=== PATIENT | female | born 1980 | race Caucasian/White ===

== ENCOUNTER 2019-12-16 17:12 | Emergency (ER) | payer OTHER, SELFPAY ==
--- NOTE | ~2019-12-16 | XR_ITS ---
XR finger 3rd LT min 2V 12/16/2019 17:47 INDICATION: Left third finger pain after trauma PROCEDURE: 4 views left third finger COMPARISON: No prior studies for comparison. FINDINGS: Fracture, dislocation or subluxation is not identified. The soft tissues appear within norm al limits. No foreign bodies are identified. IMPRESSION: 1: NO ACUTE BONE OR JOINT ABNORMALITY IDENTIFIED. Reviewed, dictated and finalized at location A.
--- NOTE | 2019-12-16 17:29 | ED.UPPEXIN ---
HPI - Extremity Injury (Upper) General Chief Complaint: Extremity Injury, Upper Stated Complaint: middle finger/r hand Time Seen by Provider: 12/16/19 17:30 Source: patient and RN notes reviewed Mode of arrival: ambulatory Limitations: no limitations History of Present Illness HPI narrative: 39 year old female who presents to [facility] care with complaints of slamming middle finger left hand yesterday in door while carrying in groceries, Patient has some swelling around nail bed and some bruising under nail at proximal bed. Patient states that finger distally is aching rates her pain 5/10. Patient has strong left radial pulse, patient denies any tingling or numbness to her finger or hand. MD complaint: injury to: left and finger (middle) Onset (ago): day(s) (1) Other Extremity Injury: Left: fingers (middle finger) Other injuries: none Handedness: right Place: home Severity: moderate Severity scale (1-10): 5 Exacerbating factors: movement of extremity Context: direct blow Associated symptoms: denies other symptoms Treatments prior to arrival: cold therapy and NSAIDS Related Data Allergies Allergy/AdvReac Type Severity Reaction Status Date / Time cat dander Allergy Unknown allergic Verified 11/08/18 09:48 grass pollen Allergy Unknown allergic Verified 11/08/18 09:48 mold Allergy Unknown allergic Verified 11/08/18 09:48 pollen extracts Allergy Unknown allergic Verified 11/08/18 09:48 Review of Systems Review of Systems: Narrative: CONSTITUTIONAL: Denies fever, chills, or sweats. EYES: Denies visual changes, redness, or discharge. ENT: Denies rhinorrhea, congestion, sore throat, or otalgia. CARDIOVASCULAR: Denies chest pain, palpitations, or edema. RESPIRATORY: Denies cough or dyspnea. GASTROINTESTINAL: Denies abdominal pain, nausea, vomiting, or diarrhea. GENITOURINARY: Denies dysuria or hematuria. SKIN: Denies rash or itching. MUSCULOSKELETAL: Denies back pain, positive for left middle finger distal joint pain and around nail bed, or myalgia. NEUROLOGIC: Denies headache, numbness, or weakness. PSYCHIATRIC: Denies anxiety or depression. All systems reviewed & are unremarkable except as noted in HPI and below PMFSH Past Medical History Medical History (Updated 12/17/19 @ 19:47 by Linda Kauffman NP) Seasonal allergies Surgical History Surgical History (Updated 12/17/19 @ 19:47 by Linda Kauffman NP) Previous section Social History Social History (Updated 12/17/19 @ 19:47 by Linda Kauffman NP) Smoking status: Never smoker Alcohol intake: current Living arrangements: with family Gender identity (if verbalized by the patient): Female Comments At time of signature, agree with nursing past medical, surgical, social history. There is no relevant family history pertinent to the presenting complaint Exam Narrative: Exam Narrative: GENERAL: Well-appearing, well-nourished, and in no acute distress. HEAD: Normocephalic, atraumatic. EYES: PERRLA and EOMI. ENT: Nares clear, no rhinorrhea or epistaxis. Mucous membranes moist. NECK: Supple. CHEST: Clear to auscultation. No respiratory distress. HEART: Regular rate and rhythm. No murmur heard. Normal peripheral pulses. ABDOMEN: Soft, nontender, nondistended, normal active bowel sounds. EXTREMITIES: Normal range of motion. No edema. Exception noted to distal joint of left middle finger and proximal nail bed area with edema and bruising at proximal nail bed, no subungual hematoma noted. circulation and sensation intact to left middle finger. SKIN: Warm, dry, no rash. NEURO: No focal deficits. Alert and oriented x3. MDM - Extremity Injury (Upper) Differential Diagnosis Differential diagnosis: Likely other (left middle finger contusion, bruising of nail, swelling of finger) Medical Records Attestation: I reviewed the patient's medical records. Imaging Data Attestation: I personally reviewed and interpreted this imaging study as follows: My impression: no f
== END 2019-12-16 18:07 | disposition home or self-care (01) ==
PROVIDERS: Emergency Provider Registered Nurse; PCP Family Medicine
DX: S60.132A Contusion of left middle finger with damage to nail, initial encounter (principal); W23.0XXA Caught, crushed, jammed, or pinched between moving objects, initial encounter
CPT/HCPCS: 73140; 99213; G0463